=== PATIENT | female | born 1985 | race Caucasian/White ===

== ENCOUNTER 2020-01-09 07:16 | Inpatient (IN) | payer BC ==
[2020-01-09] VITALS (18 sets, daily range): BP systolic 91–114; BP diastolic 48–78; PULSE 49–98; TEMP 97.6–98.5
[~2020-01-09] VITALS: Ht 167.7 cm; Wt 93.6 kg
[~2020-01-09 07:16] MED LIST: CALCI-CHEW500 MG PO; CALTRATE 600600 MG PO; COLACE 100100 MG/CAP PO; MOTRIN 600600 MG/TAB PO; PERCOCET 325 MG1 TA2 PO; PRENATAL1 TA1 PO; SENOKOT S 50 MG1 TAB PO
--- NOTE | 2020-01-09 07:20 | NUR ---
0720- Pt arrives on unit ambulatory with spouse, Jason for scheduled repeat Section. Oriented to room. Pt into bathroom, changes into gown. 0725- Pt into bed, EFM and TOCO on and tracing. VSS. Assessment completed. IV start without difficulty, Labs obtained. Consent forms explained and signed. Call light within reach.
[2020-01-09 08:12] LABS: BASO % 0.5 % (0.0-2.0); EOS % 0.7 % (0-4.0); GRAN # 3.5 (1.4-6.5); GRAN % 61.6 % (42.2-75.2); HEMOGLOBIN 10.2 g/dl (12.5-16.0); LYMPH # 1.5 (1.2-3.4); LYMPH % 25.6 % (20.0-51.0); MEAN CELL VOLUME 92 fl (80.0-100.0); MEAN CORPUSCULAR HEMOGLOBIN 30 pg (27.0-31.0); MEAN CORPUSCULAR HGB CONC 32 g/dl (33.0-37.0); MEAN PLATELET VOLUME 10.3 fl (7.4-10.4); MONO # 0.7 (0.1-0.6); MONO % 11.3 % (1.7-9.3); PLATELET COUNT 215 K/mm3 (130-400); RED BLOOD COUNT 3.45 M/mm3 (4.10-5.30); REDCELL DISTRIBUTION WIDTH-CV 11.9 % (11.5-14.5)
[2020-01-09 08:14] LABS: HEMATOCRIT 31.6 % (37.0-47.0)
[2020-01-10 03:50] VITALS: BP 107/60; PULSE 54; TEMP 98.1
[2020-01-10 08:28] VITALS: BP 92/60; PULSE 62; TEMP 98.4
[2020-01-10 08:37] LABS: HEMOGLOBIN 9.5 g/dl (12.5-16.0)
--- NOTE | 2020-01-10 11:06 | NUR ---
Initial visit; Dad thanked Personal Fitness Trainer for stopping by to offer congratulations and God's blessings to his family for the of their daughter. Patient was indisposed. Personal Fitness Trainer left card for mom to offer congratulations and information regarding the availability of spiritual care at [facility].
[2020-01-10 16:19] VITALS: BP 101/52; PULSE 73; TEMP 98
[2020-01-10 20:45] VITALS: BP 102/61; PULSE 65; TEMP 98.3
[2020-01-11 07:48] VITALS: BP 117/59; PULSE 59; TEMP 97.6
[2020-01-11] MEDS ORDERED: PERCOCET 325 MG1 TA2 PO (08:42)
[2020-01-11] MEDS ORDERED: IBU600 MG PO (08:42)
== END 2020-01-11 12:15 | disposition home or self-care (01) | DRG 788 ==
LOC: OB 07:16
PROVIDERS: ADMIT Obstetrics & Gynecology
PROC: 10D00Z1 Extraction of Products of Conception, Low, Open Approach (ICD-10-PCS; principal; 2020-01-09)
DX: O34.211 Maternal care for low transverse scar from previous cesarean delivery (principal); Z3A.39 39 weeks gestation of pregnancy; Z37.0 Single live birth
CPT/HCPCS: J0690; J1885; J2270; J2370; J2405; J2590; J2791; J3010; J7120

== ENCOUNTER 2020-08-20 20:11 | Emergency (ER) | payer BC ==
[~2020-08-20] VITALS: Ht 170.2 cm; Wt 81.8 kg
[~2020-08-20 20:11] MED LIST changes: +IBU600 MG PO
[2020-08-20 20:19] VITALS: BP 103/69; TEMP 97.9
[2020-08-20] MEDS ORDERED: CEPHALEXIN500 M1 PO (21:43)
[2020-08-20 21:50] VITALS: PULSE 66
== END 2020-08-20 21:53 | disposition home or self-care (01) ==
LOC: COL.ER 20:11
DX: S81.012A Laceration without foreign body, left knee, initial encounter (principal); W01.198A Fall on same level from slipping, tripping and stumbling with subsequent striking against other object, initial encounter; Y92.009 Unspecified place in unspecified non-institutional (private) residence as the place of occurrence of the external cause

== ENCOUNTER → 2020-08-30 | Outpatient (CLI) | payer BC ==
[~2020-08-30] MED LIST changes: +CEPHALEXIN500 M1 PO
[2020-08-30 18:51] VITALS: BP 129/84; PULSE 72; TEMP 99
== END ==
LOC: COL.ER 18:47
DX: Z48.02 Encounter for removal of sutures (principal)